=== PATIENT | male | born 2000 | race Caucasian/White ===

== ENCOUNTER 2023-05-09 07:34 | Outpatient (CLI) | payer BC, SELFPAY | END 2023-05-09 07:35 | disposition home or self-care (01) | LOC: NFLDREF 05-10 12:31 | PROVIDERS: PCP Family Medicine; Referring Provider Family Medicine; Visit Provider Family Medicine | DX: Z13.220 Encounter for screening for lipoid disorders (principal); Z13.1 Encounter for screening for diabetes mellitus | CPT/HCPCS: 80061; 82947 ==